=== PATIENT | female | born 1945 | race Native Hawaiian/Other Pacific Islander ===

== ENCOUNTER → 2016-05-07 | Day surgery (SDC) | payer MEDICARE ==
[~2016-05-07] MED LIST: ACETAMINOPHEN 1000 MG/100 ML VIAL IV ONE; CALC500 PO; DARV PO; FOLI1TAB PO; GLIP5 PO; LACTATED RINGER'S 1000 ML INJ 1,000 ML ONE; LIDOCAINE 1%/EPINEPHrine 1:100,000 SOLN 20 ML VIAL ONE; LOTE20TA PO; METH2.5 PO; METH750T2 PO; MIDAZOLAM HCL 2 MG/2 ML VIAL ONE; ONDANSETRON HCL 4 MG/2 ML VIAL IV PUSH ONE; PROPOFOL 200 MG/20 ML AMP IV ONE; RECLAST; SODIUM CHLOR 0.9% 250 ML INJ 250 ML IV ONE; VANCOMYCIN HCL 1000 MG VIAL ONE; ceFAZolin INJ 1,000 MG VIAL ONE; traMADol HCL 50 MG TAB ONE
--- NOTE | 2016-05-12 07:07 | MP ---
cc: QASIM WEST M.D.,REUBEN PEET M.D., M.D., ZAFAR, MD DATE OF SURGERY 05/07/2016 PROCEDURE Re-excision left breast. 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 POSTOPERATIVE DIAGNOSIS Invasive ductal carcinoma of the left breast with positive anterior margin. ANESTHESIA TIVA SURGEON Stephen Henao MD ESTIMATED BLOOD LOSS Less than 50 mL FLUIDS 950 mL crystalloid COMPLICATIONS None DRAINS None SPECIMEN Left breast tissue new margin to pathology. PROCEDURE IN DETAIL The patient was seen in the holding area and the left breast marked by the undersigned and confirmed by the patient. She was taken to the operating room and placed on the operating room table in the supine position. After an adequate level of IV sedation was begun, the left breast was prepped and draped in the field. Time-out was taken confirming the correct patient, site, and procedure to be performed. The skin and subcutaneous tissue was infiltrated with local anesthetic and a crescent shaped incision was made around the patient's previous incision. A large seroma was easily aspirated and the ellipse of skin was submitted for pathologic analysis. Additional anterior tissue was taken from under the nipple-areolar complex, as well as laterally and inferiorly so that all anterior tissue was removed. When this had been completed, the new anterior margins were marked with silk stitches and each specimen submitted separately. The skin was then closed with interrupted 3-0 Vicryl suture and the skin edges closed with 5-0 PDS in a running subcuticular fashion. The wound was then dressed with Steri-Strips and the patient taken back to the recovery room in stable condition. Sponge, needle and instrument counts were reported be correct. MD ELIZA Farooq/DJL /1:02 PM /6:55 AM
== END | disposition home or self-care (01) ==
LOC: ESDC 09:45
PROVIDERS: ATTEND Surgery Trauma Surgery
DX: C50.912 Malignant neoplasm of unspecified site of left female breast (principal); E11.9 Type 2 diabetes mellitus without complications; Z79.84 Long term (current) use of oral hypoglycemic drugs
CPT/HCPCS: 00400; 19301; 82948; 88307; J0131; J0690; J2250; J2405; J3010; J3370; J7050; J7120; 88305

== ENCOUNTER 2017-03-24 17:20 | Emergency (ER) | payer OTHER, MEDICARE ==
[~2017-03-24 17:20] MED LIST changes: -ACETAMINOPHEN 1000 MG/100 ML VIAL IV ONE; -LACTATED RINGER'S 1000 ML INJ 1,000 ML ONE; -LIDOCAINE 1%/EPINEPHrine 1:100,000 SOLN 20 ML VIAL ONE; -MIDAZOLAM HCL 2 MG/2 ML VIAL ONE; -ONDANSETRON HCL 4 MG/2 ML VIAL IV PUSH ONE; -PROPOFOL 200 MG/20 ML AMP IV ONE; -SODIUM CHLOR 0.9% 250 ML INJ 250 ML IV ONE; -VANCOMYCIN HCL 1000 MG VIAL ONE; -ceFAZolin INJ 1,000 MG VIAL ONE; -traMADol HCL 50 MG TAB ONE
[2017-03-24 17:31] VITALS: BP 181/83; PULSE 89; RESP 16; TEMP 98; O2SAT 98
[2017-03-24] MEDS ORDERED: ACETAMINOPHEN/HYDROcodone 325 MG/5 MG TAB PO ONE (19:15)
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
[2017-03-24 19:26] VITALS: BP 169/77; PULSE 81; RESP 16; O2SAT 100
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
[2017-03-24] MEDS ORDERED: TETANUS/DIPHTHERIA TOXOID ADULT 0.5 ML VIAL IM ONE (20:00)
[2017-03-24] MEDS ORDERED: HYDR-3516 PO (20:05)
[2017-03-24] MEDS ORDERED: IBUP-232 PO (20:19)
[2017-03-24] MEDS ORDERED: IBUPROFEN 600 MG TAB PO ONE (20:30)
== END 2017-03-24 20:54 | disposition home or self-care (01) ==
LOC: NEPD 17:20
DX: S20.219A Contusion of unspecified front wall of thorax, initial encounter (principal); S80.11XA Contusion of right lower leg, initial encounter; I10 Essential (primary) hypertension; E11.9 Type 2 diabetes mellitus without complications; V43.52XA Car driver injured in collision with other type car in traffic accident, initial encounter; Y92.410 Unspecified street and highway as the place of occurrence of the external cause; Z85.3 Personal history of malignant neoplasm of breast; Z79.899 Other long term (current) drug therapy
CPT/HCPCS: 71020; 73590; 90471; 90714; 99284; E0113